=== PATIENT | female | born 1955 | race Caucasian/White ===

== ENCOUNTER 2017-03-21 18:54 | Emergency (ER) | payer BC ==
[2017-03-21 19:45] VITALS: BP 136/82
--- NOTE | 2017-03-21 19:56 | UC ---
Respiratory Complaint HPI - HPI Summary HPI Summary: Pt c/o cough and generalized malaise X 4 days. denies SOB, fever or chills - History of Current Complaint Chief Complaint: UCRespiratory Stated Complaint: COUGH Time Seen by Provider: 03/21/17 19:41 Hx Obtained From: Patient ?: No Onset/Duration: Sudden Onset, Lasting Days, Still Present Timing: Constant Severity Initially: Mild Severity Currently: Mild Character: Cough: Nonproductive Aggravating Factors: Exertion, Deep Breaths, Recumbent Position Alleviating Factors: Nothing Associated Signs And Symptoms: Positive: Wheezing, URI - Risk Factors Pulmonary Embolism Risk Factors: Negative Cardiac Risk Factors: Smoking - hx of Tuberculosis Risk Factors: Smoking - hx of - Allergies/Home Medications Allergies/Adverse Reactions: Allergies Allergy/AdvReac Type Severity Reaction Status Date / Time No Known Allergies Allergy Verified 03/21/17 19:46 Home Medications: Home Medications Linaclotide [Linzess] 290 mg 03/21/17 [History] PMH/Surg Hx/FS Hx/Imm Hx Previously Healthy: Yes - Surgical History Surgical History: Yes Surgery Procedure, Year, and Place: right wrist, c-sect - Social History Occupation: Employed Full-time Lives: With Family Alcohol Use: None Substance Use Type: None Smoking Status (MU): Heavy Every Day Tobacco Smoker Type: Cigarettes Amount Used/How Often: 1/2 pack day Have You Smoked in the Last Year: No - pt quit 3 years ago - Immunization History Most Recent Influenza Vaccination: NOT CURRENT Vaccination Up to Date: No Review of Systems Constitutional: Negative Skin: Negative Eyes: Negative ENT: Negative Respiratory: Cough Cardiovascular: Negative Gastrointestinal: Negative Genitourinary: Negative Motor: Negative Neurovascular: Negative Musculoskeletal: Negative Neurological: Negative Psychological: Negative Is Patient Immunocompromised?: No All Other Systems Reviewed And Are Negative: Yes Physical Exam Triage Information Reviewed: Yes Appearance: Ill-Appearing Vital Signs: Initial Vital Signs Temp 97.3 F 03/21/17 19:41 Pulse 78 03/21/17 19:41 Resp 18 03/21/17 19:41 BP 136/82 03/21/17 19:41 Pulse Ox 95 03/21/17 19:41 Vital Signs Reviewed: Yes Eye Exam: Normal ENT Exam: Normal Neck exam: Normal Respiratory Exam: Other Respiratory: Positive: Wheezing - right upper and mid Cardiovascular Exam: Normal Musculoskeletal Exam: Normal Neurological Exam: Normal Psychological Exam: Normal Skin Exam: Normal UC Diagnostic Evaluation - Laboratory O2 Sat by Pulse Oximetry: 95 Respiratory Course/Dx - Differential Dx/Diagnosis Differential Diagnosis/HQI/PQRI: Bronchitis, Other - pneumonia Provider Diagnoses: bronchitis Discharge - Discharge Plan Condition: Stable Disposition: HOME Prescriptions: Albuterol HFA INHALER* [Ventolin HFA Inhaler*] 2 puff INH Q4H PRN #1 mdi PRN Reason: Sob/Wheezing Azithromycin TAB* [Zithromax TAB (Z-ADDIS) 250 mg #6 tabs] 2 tab PO .TODAY, THEN 1 DAILY #1 addis Benzonatate CAP* [Tessalon 100 MG CAP*] 100 mg PO Q8H PRN #30 cap PRN Reason: Cough predniSONE TAB* [Deltasone TAB*] 20 mg PO DAILY #6 tab Patient Education Materials: Acute Bronchitis (ED) Forms: *Work Release Referrals: No Primary Care Phys,NOPCP [Primary Care Provider] - If Needed
== END 2017-03-21 20:08 | disposition home or self-care (01) ==
LOC: UCCORT 18:54
DX: J40 Bronchitis, not specified as acute or chronic (principal); Z87.891 Personal history of nicotine dependence
CPT/HCPCS: 99202; G0463

== ENCOUNTER 2023-01-30 13:19 | Observation (INO) ==
[~2023-01-30 13:19] MED LIST: Buffered Lidocaine 1% SYRIN 1 ml INTRADERM ONE; Famotidine IV 10 MG/ML 2 ml VIAL (20 mg) IV ONE; Lactated Ringers 1000 ml BAG 1,000 ML IV SCH
[2023-01-30] MEDS ORDERED: ceFAZolin 2 GM in NS PREMIX 2 GM/100 ML BAG IVPB ONE (14:04)
[2023-01-30] MEDS ORDERED: Tranexamic Acid 1 GM/100ML BAG 2,000 MG/200 ML BAG IV ONE (14:04)
[2023-01-30] MEDS ORDERED: Famotidine IV 10 MG/ML 2 ml VIAL (20 mg) ONE (14:05)
[2023-01-30 14:26] LABS: Rapid COVID-19 Molecular Undetected (Undetected)
[2023-01-30] MEDS ORDERED: Ondansetron 4 mg VIAL 2 MG/ML 2 ml VIAL IV PRN ×2 (14:55→16:33)
[2023-01-30] MEDS ORDERED: fentaNYL 100 mcg/2 ml 50 MCG/ML VIAL IV PRN (14:55)
[2023-01-30] MEDS ORDERED: Naloxone 0.4 mg VIAL 0.4 mg/ml 1 ml VIAL IV PRN (14:55)
[2023-01-30] MEDS ORDERED: Propofol 10 MG/ML 20 ML BTL ONE ×2 (14:58→17:55)
[2023-01-30] MEDS ORDERED: fentaNYL 100 mcg/2 ml 50 MCG/ML VIAL ONE ×2 (14:58→15:49)
[2023-01-30] MEDS ORDERED: Lidocaine 2% PF 5 ML VIAL ONE (14:58)
[2023-01-30] MEDS ORDERED: Midazolam 2 mg/2 ml VIAL 1 mg/ml 2 ml VIAL (2 mg) ONE ×2 (15:49→16:38)
[2023-01-30] MEDS ORDERED: ROPIVACAINE 5 MG/ML 30 ML BTL (0.5%) ONE ×2 (15:49→15:51)
[2023-01-30] MEDS ORDERED: Ondansetron ODT 4 mg TAB 4 MG TAB PO PRN (16:33)
[2023-01-30] MEDS ORDERED: Lactulose 30 ml UDC PO PRN (16:33)
[2023-01-30] MEDS ORDERED: Morphine 2 MG/ML SYRINGE IV PRN (16:33)
[2023-01-30] MEDS ORDERED: Magnesium Hydroxide LIQ 30 ML UDC PO PRN (16:33)
[2023-01-30] MEDS ORDERED: Bupivacaine 0.5% PF 10 ML SDV VIAL INJ ONE (16:39)
[2023-01-30] MEDS ORDERED: Ondansetron 4 mg VIAL 2 MG/ML 2 ml VIAL ONE (17:05)
[2023-01-30] MEDS ORDERED: Dexamethasone IV 4 MG/ML VIAL 1 ml VIAL ONE (17:05)
[2023-01-30] MEDS: Magnesium Hydroxide LIQ 30 ML UDC PO SCH (21:39)
[2023-01-30] MEDS: Lactated Ringers 1000 ml BAG 1,000 ML IV SCH (21:47)
[2023-01-30] MEDS ORDERED: Dextrose 50% Syringe 50 ml 25 GM/50 ML SYRINGE IV PUSH PRN (23:43)
[2023-01-31] MEDS: ceFAZolin 1 GM ADVAN 1 GM in NS 0.9% 50 ML 50 ML IVPB SCH ×3 (01:23→18:10)
[2023-01-31 07:03] LABS: Hematocrit 34.2 % (35-45); Hemoglobin 11.8 g/dL (11.5-14.3); Mean Platelet Volume 7.1 fL (7.5-11.2); Platelet Count 140 10^3/uL (150-450)
[2023-01-31 07:12] LABS: Calcium 8.8 mg/dL (8.6-10.3); Creatinine, Serum 0.57 mg/dL (0.51-0.95); Potassium 4.1 mmol/L (3.5-5.0); eGFR CKD-EPI 100.8 (>60)
[2023-01-31] MEDS: Lactated Ringers 1000 ml BAG 1,000 ML IV SCH (10:20)
[2023-01-31] MEDS: Vitamin THERAPEUTIC TAB PO SCH (10:24)
[2023-01-31] MEDS: Magnesium Hydroxide LIQ 30 ML UDC PO SCH ×2 (10:28→21:37)
[2023-02-01 06:31] LABS: Hematocrit 32.4 % (35-45); Hemoglobin 11.1 g/dL (11.5-14.3); Platelet Count 127 10^3/uL (150-450)
[2023-02-01] MEDS: Vitamin THERAPEUTIC TAB PO SCH (09:09)
[2023-02-01] MEDS: Magnesium Hydroxide LIQ 30 ML UDC PO SCH (09:10)
[2023-02-01 10:49] VITALS: BP 114/71
== END 2023-02-01 14:33 | disposition home or self-care (01) ==
LOC: OR 13:19 → INTOOBSV 21:07 → SSU 21:07
PROVIDERS: ADMIT Orthopaedic Surgery Adult Reconstructive Orthopaedic Surgery; ATTEND Orthopaedic Surgery Adult Reconstructive Orthopaedic Surgery